=== PATIENT | female | born 1985 | race Caucasian/White ===

== ENCOUNTER 2024-03-04 05:35 | Emergency (ER) | payer OTHER, SELFPAY ==
[2024-03-04 05:40] VITALS: BP 107/71; PULSE 115; RESP 20; TEMP 39.4; O2SAT 98; BMI 32.9
[2024-03-04] MEDS: Acetaminophen 325 MG TABLET 650 MG PO (05:53)
[2024-03-04 06:06] LABS: IDNOW Serial# 6674DD1D; Strep A Nucleic Acid Positive (Negative)
[2024-03-04 06:21] LABS: IDNOW Serial# 08D9AD1C; Influenza A Negative (Negative); Influenza B2 Negative (Negative)
[2024-03-04 06:39] LABS: COVID-19 Test Negative (Negative); IDNOW Serial# 152EDE1D
--- NOTE | 2024-03-04 07:03 | ED_ITS ---
HPI - Fever General Chief Complaint: Fever Stated Complaint: heat exhaustion? 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 has little kids but denies sick contacts. MD elicited complaint: fever and malaise Onset (ago): hour(s) (several) Context: other Exacerbating factors: swallowing and exertion Relieving factors: nothing Associated symptoms: chills, myalgias, headache and sore throat Treatments prior to arrival fever: none Related Data Previous Rx's ?Medication ?Instructions ?Recorded amoxicillin 500 mg capsule 500 mg PO BID 10 days #20 caps 03/04/24 ibuprofen 600 mg tablet 600 mg PO Q6H PRN pain #30 tabs 03/04/24 Allergies Allergy/AdvReac Type Severity Reaction Status Date / Time No Known Allergies Allergy Verified 03/04/24 05:43 Review of Systems Review of Systems: Constitutional : pos Fever, pos Chills, pos Fatigue ENT/Mouth : No sore throat, No Rhinorrhea Eyes: No Eye Pain, No Swelling, No Redness Cardiovascular : No Chest Pain, No SOB, No Dyspnea on Exertion Respiratory : No Cough, No Sputum Gastrointestinal : No Nausea, No Vomiting, No Diarrhea, No abdominal Pain Genitourinary : No Dysuria, No Urinary Frequency, No Hematuria, Musculoskeletal : No joint pain, pos Myalgias, No Joint Swelling Skin : No Skin Lesions, No rash Neuro : No Weakness, No Numbness, No Dizziness, positive Headache Psych : No Anxiety/Panic, No Depression All other systems reviewed and are negative [facility] Past Medical History Attestation statement: The following information was validated with the patient. Source: old records reviewed Medical History No pertinent past medical history Social History Social History Alcohol intake: current Alcohol intake frequency: holidays/special occasions only Smoked in Last 30 Days: Yes Use of substances other than those prescribed or required for medical reasons: Yes Substance Use Type: Marijuana Substance Use Frequency: Occasionally Advance Directives: No Advance Directives Information Provided: No Do you have a plan to hurt others: No Plan Physical Exam Vital Signs: Vital Signs: Last Vital Signs Temp 103 F H 03/04/24 05:40 Pulse 115 H 03/04/24 05:40 Resp 20 03/04/24 05:40 BP 107/71 03/04/24 05:40 Pulse Ox 98 03/04/24 05:40 O2 Del Method Room Air 03/04/24 05:40 BMI result Body Mass Index 32.9 Appearance: Alert. Oriented X3. No acute distress. Eyes: Pupils equal, round and reactive to light. ENT: Pharynx moderate erythema with exudates uvula is midline normal ROM of neck Neck: Normal inspection. Neck supple. CVS: Normal heart rate and rhythm. Pulses normal. Respiratory: No respiratory distress. Breath sounds normal. Abdomen: Soft and nontender. Skin: Skin warm and dry. Normal skin color. Normal skin turgor. Extremities: No lower extremity edema. No calf ttp Neuro: Oriented X 3. No motor deficit. No sensory deficit. Medications Administered Discontinued Medications Generic Name Dose Route Start Last Admin Trade Name Donnq PRN Reason Stop Dose Admin Acetaminophen 650 mg 03/04/24 05:45 03/04/24 05:53 Acetaminophen 325 Mg Tablet PO 03/04/24 05:46 650 mg ONCE ONE Administration Medical Decision Making Medical Decision Making [facility] Narrative: 39 yo female with fevers and viral syndrome at this time not toxic no signs of deeper space infection will test for viral syndrome and strep throat - start on tylenol and motrin. if strep positive start on steroids and antibiotics. Differential Diagnosis Differential Diagnoses: The differential diagnosis associated with the presentation includes viral syndrome strep throat no signs of [employer] or retropharyngeal abscess Admission/Observation Consideration of admission/observation: Escalation of care including admission/observation considered not toxic stable for DC Lab Data [facility] Lab Attestation statement: I reviewed the patient's lab results. Labs: Lab Results 03/04/24 Range/Units 05:53 COVID-19 (JERRY) Negative (Negative) COVID-19 Clin Com See Note Influenza Type A (MARICEL) Negative (Negative) Influenza Type B (MARICEL) Negative (Negative) Influenza A & B Note See Note S. pyogenes GrpA MARICEL Positive A (Negative) Prescription Management I considered prescription management with: Pain Medication, Antibiotic and Other Discharge Plan Discharge Clinical Impression: Strep throat Patient Disposition: Home, Self-Care Instructions: Strep Throat (ED) Additional Instructions: take all antibiotics return for worsening symptoms, pain, unable to swallow throw away toothbrush tomorrow Prescriptions: New amoxicillin 500 mg capsule 500 mg PO BID 10 Days Qty: 20 0RF ibuprofen 600 mg tablet 600 mg PO Q6H PRN (Reason: pain) Qty: 30 0RF Stand Alone Forms: Work/School Release Print Language: Amharic
[2024-03-04 07:52] VITALS: PULSE 96; RESP 16; TEMP 37.1; O2SAT 100
[2024-03-04] MEDS: dexAMETHasone sod phosphate 4 MG/ML VIAL 8 MG PO (07:53)
[2024-03-04] MEDS: Ibuprofen 600 MG TABLET PO (07:53)
[2024-03-04] MEDS: Amoxicillin 500 MG CAPSULE PO (07:53)
[2024-03-04 08:19] VITALS: BP 107/71; PULSE 96; RESP 16; TEMP 37.1; O2SAT 100
== END 2024-03-04 08:19 | disposition home or self-care (01) ==
PROVIDERS: Emergency Provider Emergency Medicine; PCP Internal Medicine
DX: J02.0 Streptococcal pharyngitis (principal); R50.9 Fever, unspecified; Z03.818 Encounter for observation for suspected exposure to other biological agents ruled out
CPT/HCPCS: 87502; 87635; 87651; 99283; 99284; J1100